=== PATIENT | female | born 1945 | race Caucasian/White ===

== ENCOUNTER 2018-01-05 07:32 | Emergency (ER) | payer OTHER, MEDICARE ==
[~2018-01-05] VITALS: Ht 160 cm; Wt 77.1 kg
[2018-01-05 10:22] VITALS: BP 132/63
== END 2018-01-05 10:15 | disposition home or self-care (01) ==
LOC: FSED 07:32
DX: R55 Syncope and collapse (principal); R42 Dizziness and giddiness; Z86.73 Personal history of transient ischemic attack (TIA), and cerebral infarction without residual deficits
CPT/HCPCS: 99284